=== PATIENT | male | born 1945 | race Caucasian/White ===

== ENCOUNTER 2018-04-10 11:13 | Emergency (ER) | payer BC, MEDICARE ==
[2018-04-10] MEDS ORDERED: IPRATROPIUM/ALBUTEROL (0.5MG/3MG) NEB INH ONE (12:13)
--- NOTE | 2018-04-10 12:18 | Emergency Department Record ---
History of Present Illness - General Chief complaint: ENT Stated complaint: CHEST CONGESTION Time Seen by Provider: 04/10/18 12:05 Source: Patient Mode of Arrival: Ambulatory Limitations: No limitations - History of Present Illness Initial comments: pt has had a cough and sob for a few days . it gets worse when he lays flat. he denies cp or fevers. he states he has a lot of rattling in his chest that is getting worse MD complaint: Other Onset/Timin -: Days(s) Severity: Moderate Quality: Aching Consistency: Getting worse Associated Symptoms: Cough, Rhinorrhea - Related Data Home Medications Medication Instructions Recorded Confirmed Last Taken Albuterol Sulfate [Ventolin Hfa] 1 - 2 puff IH .EVERY 4-6 HOURS PRN 04/10/18 1 Day Ago ~04/09/18 Atenolol [Tenormin] 25 mg PO DAILY 04/10/18 04/10/18 1 Day Ago ~04/09/18 Enalapril Maleate [Vasotec] 5 mg PO DAILY 04/10/18 04/10/18 1 Day Ago ~04/09/18 Simvastatin 80 mg PO DAILY 04/10/18 04/10/18 1 Day Ago ~04/09/18 Tamsulosin HCl [Flomax] 0.4 mg PO DAILY 04/10/18 04/10/18 1 Day Ago ~04/09/18 Previous Rx's Medication Instructions Recorded Azithromycin [Zithromax] 250 mg PO DAILY #6 tablet 04/10/18 Allergies Allergy/AdvReac Type Severity Reaction Status Date / Time NO KNOWN DRUG ALLERGY Allergy Uncoded 08/07/13 10:09 Travel Screening - Travel/Exposure Within Last 30 Days Have you traveled within the last 30 days?: No - Travel/Exposure Within Last Year Have you traveled outside the [place] in the last year?: No - Additonal Travel Details Have you been exposed to anyone with a communicable illness?: No - Travel Symptoms Symptom Screening: None Review of Systems Reviewed: No additional complaints except as noted below Constitutional: Reports: As per HPI. Denies: Chills, Fever, Malaise, Night sweats, Weakness, Weight change Eyes: Reports: As per HPI. Denies: Eye discharge, Eye pain, Photophobia, Vision change ENT: Reports: As per HPI, Congestion. Denies: Dental pain, Ear pain, Epistaxis , Hearing loss, Throat pain Respiratory: Reports: As per HPI, Cough, Dyspnea. Denies: Hemoptysis, Stridor, Wheezes Cardiovascular: Reports: As per HPI. Denies: Arrhythmia, Chest pain, Dyspnea on exertion, Edema, Murmurs, Orthopnea, Palpitations, Paroxysmal nocturnal dyspnea, Rheumatic Fever, Syncope Endocrine: Reports: As per HPI. Denies: Fatigue, Heat or cold intolerance, Polydipsia, Polyuria Gastrointestinal: Reports: As per HPI. Denies: Abdominal pain, Constipation, Diarrhea, Hematemesis, Hematochezia, Melena, Nausea, Vomiting Genitourinary: Reports: As per HPI. Denies: Dysuria, Frequency, Hematuria, Incontinence, Retention, Testicular pain, Testicular mass, Urgency Musculoskeletal: Reports: As per HPI. Denies: Arthralgia, Back pain, Gout, Joint swelling, Myalgia, Neck pain Skin: Reports: As per HPI. Denies: Bruising, Change in color, Change in hair/ nails, Lesions, Pruritus, Rash Neurological: Reports: As per HPI. Denies: Abnormal gait, Confusion, Headache, Numbness, Paresthesias, Seizure, Tingling, Tremors, Vertigo, Weakness Psychiatric: Reports: As per HPI. Denies: Anxiety, Auditory hallucinations, Depression, Homicidal thoughts, Suicidal thoughts, Visual hallucinations Hematological/Lymphatic: Reports: As per HPI. Denies: Anemia, Blood Clots, Easy bleeding, Easy bruising, Swollen glands Past Medical History - SOCIAL HISTORY Smoking Status: Former smoker Alcohol Use: None Drug Use: None - RESPIRATORY Hx Asthma: Yes (exercise) - CARDIOVASCULAR Hx Cardio Disorders: Yes Hx Heart Attack: Yes (age 34) Hx Irregular Heartbeat: Yes (skips a beat, [facility]) - NEURO Hx Neuro Disorders: Yes Comment:: [place] - Hx Genitourinary Disorders: No - ENDOCRINE Hx Endocrine Disorders: No Hx Diabetes: No Hx Thyroid Disease: No - MUSCULOSKELETAL Hx Musculoskeletal Disorders: No - PSYCH Hx Psych Problems: No - HEMATOLOGY/ONCOLOGY Hx Hematology/Oncology Disorders: No Family Medical History Any Significant Family History?: Yes Physical Exam - General General Appearance: Alert, Oriented x3, Cooperative, Mild distress - Head Head exam: Normal inspection - Eye Eye exam: Normal appearance, PERRL, EOMI Pupils: Normal accommodation - ENT ENT exam: Normal exam, Mucous membranes moist, Normal external ear exam, Normal orophraynx Ear exam: Normal external inspection. negative: External canal tenderness Nasal Exam: Normal inspection. negative: Discharge, Sinus tenderness Mouth exam: Normal external inspection, Tongue normal Teeth exam: Normal inspection. negative: Dental caries Throat exam: Normal inspection. negative: Tonsillar erythema, Tonsillar exudate - Neck Neck exam: Normal inspection, Full ROM. negative: Tenderness - Respiratory Respiratory exam: Rales, Wheezes. negative: Respiratory distress - Cardiovascular Cardiovascular Exam: Regular rate, Normal rhythm, Normal heart sounds - GI/Abdominal GI/Abdominal exam: Soft, Normal bowel sounds. negative: Tenderness - Rectal Rectal exam: Deferred - exam: Deferred - Extremities Extremities exam: Normal inspection, Full ROM, Normal capillary refill. negative: Tenderness - Back Back exam: Reports: Normal inspection, Full ROM. Denies: Muscle spasm, Rash noted, Tenderness - Neurological Neurological exam: Alert, CN II-XII intact, Normal gait, Oriented X3 - Psychiatric Psychiatric exam: Normal affect, Normal mood - Skin Skin exam: Dry, Intact, Normal color, Warm Course Vital Signs 04/10/18 11:50 Temperature 98.3 F Pulse Rate 74 Respiratory 18 Rate Blood Pressure 150/85 Pulse Ox 95 Medical Decision Making - Lab Data Result diagrams: 04/10/18 13:00 04/10/18 13:00 Disposition Disposition: Discharge Clinical Impression: Bronchitis, Lung nodule, multiple Disposition: Home, Self-Care Condition: (1) Good Instructions: Acute Bronchitis (ED) Additional Instructions: follow up with family doctor. return sooner if worse. motrin or tylenol for aches and fever. have repeat cxt or ct in a month Prescriptions: Azithromycin [Zithromax] 250 mg PO DAILY #6 tablet Forms: Patient Portal Access Quality - Quality Measures Quality Measures: N/A - Blood Pressure Screening Does Patient Have Any of the Following: No Blood Pressure Classification: Pre-Hypertensive BP Reading Systolic Measurement: 150 Diastolic Measurement: 85 Screening for High Blood Pressure: < Pre-Hypertensive BP, F/U Documented > [ [id number]] Pre-Hypertensive Follow-up Interventions: Follow-up with rescreen every year.
[2018-04-10 12:27] LABS: INFLUENZA A NEGATIVE (NEGATIVE); INFLUENZA B NEGATIVE (NEGATIVE)
[2018-04-10 13:03] LABS: BASO % 0.3 % (0-6); EOS % 7.1 % (0-6); GRAN % 43.6 % (47-80); HEMATOCRIT 45.6 % (42.0-52.0); HEMOGLOBIN 15.7 gm/dl (14.0-18.0); LYMPH % 40.9 % (16-45); MEAN CELL VOLUME 93.4 fl (81-97); MEAN CORPUSCULAR HEMOGLOBIN 32.2 pg (27-33); MEAN CORPUSCULAR HGB CONC 34.4 g/dl (32-36); MEAN PLATELET VOLUME 9.6 fl (7.4-10.4); MONO % 8.1 % (0-9); PLATELET COUNT 171 K/uL (130-400); RED BLOOD COUNT 4.88 M/uL (4.40-5.70); RED CELL DISTRIBUTION WIDTH 13.7 % (11.5-14.5); WHITE BLOOD COUNT W/O DIFF 9.3 K/uL (4.2-12.2)
[2018-04-10 13:50] LABS: BLOOD UREA NITROGEN 12 mg/dL (8-23)
[2018-04-10 13:51] LABS: CREATININE 0.7 mg/dL (0.7-1.2); EST GLOMERULAR FILTRATION RATE > 60 mL/min
[2018-04-10 13:53] LABS: GLUCOSE,RANDOM 93 mg/dL (74-109)
[2018-04-10] MEDS ORDERED: IBUPROFEN 600 MG TABLET PO ONE (14:37)
--- NOTE | 2018-04-10 22:55 | RADIOLOGY REPORT ---
EXAM: CHEST 2 VIEWS HISTORY: DRY COUGH FOR THREE DAYS. TECHNIQUE: Chest, two-views. COMPARISON: 07/26/12. FINDINGS: Previous median sternotomy and CABG. Cardiomediastinal silhouette is stable. There appears to be reticulonodular prominence within the lungs including a possible 8 mm nodule within the right mid lung. No clear focal consolidation or pleural effusion. IMPRESSION: THERE IS RETICULONODULAR PROMINENCE WITHIN THE LUNGS INCLUDING A POSSIBLE 8 MM NODULE WITHIN THE RIGHT MID LUNG. FINDINGS APPEAR SOMEWHAT MORE CONSPICUOUS ON CURRENT EXAMINATION, RECOMMEND FOLLOW-UP CHEST RADIOGRAPH VS. CT CHEST AFTER AN APPROPRIATE CLINICAL INTERVAL. JOB NUMBER: [id number] MTDD
== END 2018-04-10 14:49 | disposition home or self-care (01) ==
LOC: ER 11:13
DX: J20.9 Acute bronchitis, unspecified (principal); R91.8 Other nonspecific abnormal finding of lung field; I25.2 Old myocardial infarction; Z87.891 Personal history of nicotine dependence
CPT/HCPCS: 71046; 80048; 83880; 84484; 85025; 87400; 94640; 99283; 99284

== ENCOUNTER 2018-04-14 15:28 | Emergency (ER) | payer BC, MEDICARE ==
[2018-04-14] MEDS ORDERED: IPRATROPIUM/ALBUTEROL (0.5MG/3MG) NEB INH ONE (15:38)
--- NOTE | 2018-04-14 15:58 | Emergency Department Record ---
History of Present Illness - General Chief Complaint: Shortness of breath Stated Complaint: RENE Time Seen by Provider: 04/14/18 15:51 Source: Patient Mode of Arrival: Ambulatory Limitations: No limitations - History of Present Illness Initial Comments: 72 yo male presents with cough and shortness of breath for about a week. He was seen in the ED on Wednesday and started on a ZPack. He reports he had some increased cough and shortness of breath. No syncope. No chest pain. The cough has been productive. 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 He has not seen a rn medical inpatient services at [facility] for many years. PCP is Dr Terry. Complaint: Cough Onset/Timin -: Week(s) Improves With: Nothing Worsens With: Nothing Known History Of: Other (CAD) Context: Other Associated Symptoms: Cough Treatments Prior to Arrival: None - Related Data Home Oxygen Therapy: No Allergies Allergy/AdvReac Type Severity Reaction Status Date / Time NO KNOWN DRUG ALLERGY Allergy no Uncoded 04/14/18 15:34 allergies Travel Screening - Travel/Exposure Within Last 30 Days Have you traveled within the last 30 days?: No Review of Systems Constitutional: Reports: Malaise, Weakness. Denies: Chills Eyes: Denies: Eye discharge ENT: Reports: Congestion Respiratory: Reports: Cough, Dyspnea Cardiovascular: Denies: Chest pain, Palpitations, Syncope Gastrointestinal: Denies: Abdominal pain, Nausea, Vomiting Genitourinary: Denies: Dysuria, Frequency, Hematuria Musculoskeletal: Denies: Arthralgia, Back pain, Myalgia Skin: Denies: Bruising, Change in color, Rash Neurological: Denies: Headache Psychiatric: Denies: Anxiety Hematological/Lymphatic: Denies: Easy bleeding, Easy bruising Past Medical History - SOCIAL HISTORY Smoking Status: Former smoker Alcohol Use: None Drug Use: None - RESPIRATORY Hx Respiratory Disorders: Yes Hx Asthma: Yes (exercise) - CARDIOVASCULAR Hx Cardio Disorders: Yes Hx Heart Attack: Yes (age 34) Hx Irregular Heartbeat: Yes (skips a beat, [facility]) - NEURO Hx Neuro Disorders: Yes Comment:: [place] - GI Hx GI Disorders: No - Hx Genitourinary Disorders: No - ENDOCRINE Hx Endocrine Disorders: No Hx Diabetes: No Hx Thyroid Disease: No - MUSCULOSKELETAL Hx Musculoskeletal Disorders: No - PSYCH Hx Psych Problems: No - HEMATOLOGY/ONCOLOGY Hx Hematology/Oncology Disorders: No Family Medical History Any Significant Family History?: No Physical Exam - General General Appearance: Alert, Oriented x3, Cooperative, No acute distress Limitations: No limitations - Head Head exam: Atraumatic - Eye Eye exam: Normal appearance. negative: Conjunctival injection, Scleral icterus - ENT ENT exam: Normal exam, Mucous membranes moist Ear exam: Normal external inspection Nasal Exam: Normal inspection Mouth exam: Normal external inspection - Neck Neck exam: Normal inspection - Respiratory Respiratory exam: Prolonged expiratory, Rhonchi, Wheezes - Cardiovascular Cardiovascular Exam: Tachycardia Peripheral Pulses: 2+: Radial (R), Radial (L) - GI/Abdominal GI/Abdominal exam: Soft. negative: Tenderness - Rectal Rectal exam: Deferred - exam: Deferred - Extremities Extremities exam: Normal inspection - Back Back exam: Denies: CVA tenderness (R), CVA tenderness (L) - Neurological Neurological exam: Alert, Oriented X3 - Psychiatric Psychiatric exam: Normal affect, Normal mood - Skin Skin exam: Dry, Intact, Normal color, Warm Course Vital Signs 04/14/18 04/14/18 15:31 15:39 Temperature 98.1 F Pulse Rate 68 84 Respiratory 32 H 24 Rate Blood Pressure 139/97 Pulse Ox 95 - Reevaluation(s) Reevaluation #1: EKG WCT rate 190, intervals QRS 137, Qtc 535, axis left 04/14/18 16:01 EMR reviewed from prior visit 04/14/18 16:02 04/14/18 16:12 [facility] through [facility] One Call paged. 04/14/18 16:21 I CLOVIS Dawson of cardiology at [facility] The EKG was reviewed He recommends Lopressor 5mg IVP Q10-15 minutes Heparin and Aspirin given Stat Transfer to [facility]. Defibillation pads were placed 04/14/18 16:28 The CBC was reviewed No acute changes 04/14/18 16:41 Lopressor given. HR improved to lower 100's. Medical Decision Making - Management Options MDM Management: No Additional Work-up Planned - Data Complexity MDM Data: Labs Ordered and/or Reviewed, X-Ray Ordered and/or Reviewed, EKG Ordered and/or Reviewed, Independent Visualization of Image, Tracing, or Specimen, Discussion of Test Results With Performing Physician, Decision to Obtain Old Record - Lab Data Result diagrams: 04/14/18 15:40 04/14/18 15:40 Critical Care Time Critical Care Time: Yes Total Critical Care Time: 85 Disposition Disposition: Transfer Clinical Impression: Bronchitis, Arrhythmia, Frequent PVCs, Atrial fibrillation with controlled ventricular rate Disposition: Acute Care Hospital Transfer Transfer To: [facility] Reason For Transfer: Arrhythmia Accepting Physician: Samir Time Discussed w/Accepting Physician: 16:23 Condition: (2) Stable Forms: Patient Portal Access Time of Disposition: 16:23 Quality - Quality Measures Quality Measures: N/A - Blood Pressure Screening Does Patient Have Any of the Following: Active Dx of HTN Blood Pressure Classification: Hypertensive Reading Systolic Measurement: 164 Diastolic Measurement: 91 Screening for High Blood Pressure: Patient Exclusion, Hx of HTN [G9744]
[2018-04-14] MEDS ORDERED: MAGNESIUM SULFATE 16 MEQ in 0.9 % SODIUM CHLORIDE 100ML 100 ML IV ONE (15:59)
[2018-04-14 16:02] LABS: BASO % 0.4 % (0-6); EOS % 8.6 % (0-6); GRAN % 51.5 % (47-80); HEMATOCRIT 48.1 % (42.0-52.0); HEMOGLOBIN 16.6 gm/dl (14.0-18.0); LYMPH % 30.9 % (16-45); MEAN CELL VOLUME 91.8 fl (81-97); MEAN CORPUSCULAR HEMOGLOBIN 31.7 pg (27-33); MEAN CORPUSCULAR HGB CONC 34.5 g/dl (32-36); MONO % 8.6 % (0-9); PLATELET COUNT 173 K/uL (130-400); RED BLOOD COUNT 5.24 M/uL (4.40-5.70); RED CELL DISTRIBUTION WIDTH 13.7 % (11.5-14.5); WHITE BLOOD COUNT W/O DIFF 11.4 K/uL (4.2-12.2)
[2018-04-14] MEDS ORDERED: METOPROLOL TART 5 MG/5 ML VIAL IV ONE (16:19)
[2018-04-14 16:20] LABS: INR 1.1; PARTIAL THROMBOPLASTIN TIME 22.9 SECONDS (24.5-39.1); PROTHROMBIN TIME (PATIENT) 10.6 SECONDS (9.5-12.1)
[2018-04-14] MEDS ORDERED: ASPIRIN 81 MG CHEWABLE TABLET PO ONE (16:20)
[2018-04-14] MEDS ORDERED: HEPARIN SODIUM 1000 UNIT/1 ML 10ML VIAL IVP ONE (16:20)
[2018-04-14] MEDS ORDERED: HEPARIN SODIUM/D5W 25,000 UNITS/500 ML BAG IV SCH (16:30)
[2018-04-14 16:46] LABS: BLOOD UREA NITROGEN 11 mg/dL (8-23); CREATININE 0.7 mg/dL (0.7-1.2); EST GLOMERULAR FILTRATION RATE > 60 mL/min
[2018-04-14 16:47] LABS: TOTAL PROTEIN 6.9 g/dL (6.6-8.7)
[2018-04-14 16:51] LABS: GLUCOSE,RANDOM 107 mg/dL (74-109)
[2018-04-14 16:53] LABS: ALB/GLOB RATIO 1.7 (1.1-1.8); ALBUMIN 4.3 g/dL (4.0-5.0); ALKALINE PHOSPHATASE 72 U/L (55-149); ALT/SGPT 21 U/L (<41); AST/SGOT 26 U/L (10.0-50.0)
[2018-04-14 17:06] LABS: INFLUENZA A NEGATIVE (NEGATIVE)
[2018-04-14 17:07] LABS: INFLUENZA B NEGATIVE (NEGATIVE)
--- NOTE | 2018-04-15 09:45 | RADIOLOGY REPORT ---
EXAM: CHEST HISTORY: DIFFICULTY IN BREATHING. TECHNIQUE: AP view of the chest was obtained. FINDINGS: The heart and pulmonary vessels are normal, allowing for technique. No infiltrate or effusion is seen. There is atherosclerotic aortic elongation. IMPRESSION: AP VIEW OF THE CHEST DEMONSTRATES NO EVIDENCE OF AN ACUTE INTRATHORACIC PROCESS. JOB NUMBER: [id number] MTDD
== END 2018-04-14 17:37 | disposition short-term general hospital (02) ==
LOC: ER 15:28
DX: I48.0 Paroxysmal atrial fibrillation (principal); J20.9 Acute bronchitis, unspecified; R06.02 Shortness of breath; I10 Essential (primary) hypertension; I25.2 Old myocardial infarction; Z87.891 Personal history of nicotine dependence
CPT/HCPCS: 71045; 80053; 83735; 83880; 84484; 85025; 85610; 85730; 87400; 92960; 93005; 93010; 94640; 96374; 96375; 99291